=== PATIENT | male | born 1940 | race Hispanic/Latino ===

== ENCOUNTER → 2020-10-07 | Outpatient (CLI) | payer OTHER | END | disposition home or self-care (01) | LOC: RAH 12:58 | PROVIDERS: ATTEND Urology | DX: N50.811 Right testicular pain (principal); N43.3 Hydrocele, unspecified; N50.3 Cyst of epididymis | CPT/HCPCS: 76870 ==

== ENCOUNTER → 2020-10-10 | Outpatient (CLI) | payer OTHER | END | disposition home or self-care (01) | LOC: RAH 13:38 | PROVIDERS: ATTEND Urology | DX: N28.1 Cyst of kidney, acquired (principal); N40.0 Benign prostatic hyperplasia without lower urinary tract symptoms; R31.29 Other microscopic hematuria | CPT/HCPCS: 36415; 76770; 84153; 84154 ==